=== PATIENT | female | born 1960 | race Caucasian/White ===

== ENCOUNTER 2022-10-25 16:50 | Emergency (ER) | payer OTHER ==
[2022-10-25 17:24] LABS: BASOPHILS # (AUTO) 0.1 10^3/uL (0.0-0.1); BASOPHILS % (AUTO) 1.3 %; EOSINOPHILS # (AUTO) 0.1 10^3/uL (0.0-0.7); EOSINOPHILS % (AUTO) 1.4 %; HCT - HEMATOCRIT 41.8 % (37.0-47.0); HGB - HEMOGLOBIN 13.6 g/dL (12.0-16.0); LYMPHOCYTES # (AUTO) 2.5 10^3/uL (1.5-3.5); LYMPHOCYTES % (AUTO) 29.1 %; MEAN CORPUSCULAR HEMOGLOBIN 30.6 pg (27.0-31.0); MEAN CORPUSCULAR HGB CONC 32.5 g/dL (32.0-36.0); MEAN CORPUSCULAR VOLUME 94.1 fL (81.0-99.0); MEAN PLATELET VOLUME 9.7 fL (7.9-10.8); MONOCYTES # (AUTO) 0.7 10^3/uL (0.0-1.0); MONOCYTES % (AUTO) 8.3 %; NEUTROPHILS # (AUTO) 5.1 10^3/uL (1.5-6.6); NEUTROPHILS % (AUTO) 59.7 %; PLT - PLATELET COUNT 285 10^3/uL (130-450); RED BLOOD COUNT 4.44 10^6/uL (4.20-5.40); RED CELL DISTRIBUTION WIDTH 12.7 % (12.0-15.0); WHITE BLOOD COUNT 8.5 x10^3/uL (4.8-10.8)
[2022-10-25 17:32] LABS: ALBUMIN 4.1 g/dL (3.2-5.5); ALBUMIN/GLOBULIN RATIO 1.4 (1.0-2.2); BILIRUBIN,TOTAL 0.6 mg/dL (0.2-1.0); CALCIUM 9.6 mg/dL (8.5-10.3); CREATININE 0.9 mg/dL (0.4-1.0)
--- NOTE | 2022-10-25 17:49 | ED Physician Documentation ---
PD HPI CHEST PAIN - Stated complaint Stated Complaint: CHEST PAIN - Chief complaint Chief Complaint: Cardiac - History obtained from History obtained from: Patient - History of Present Illness Timing - onset: How many hours ago (5), Today (about 12 today.) Timing - onset during: Exertion (was doing yard work, somewhat vigorous.) Timing - duration: Hours Timing - details: Abrupt onset, Still present Location: Substernal Radiation: Left upper extremity. No: Neck, Back Improved by: No: Rest, ASA (she did take 4 baby aspirin at home [employer].) Worsened by: Exertion. No: Inspiration, Movement Associated symptoms: Shortness of air (mild), Nausea (mild). No: Vomiting, Feeling faint / dizzy, Palpitations Similar symptoms before: Has not had sx before Recently seen: Not recently seen Review of Systems Constitutional: denies: Fever, Chills Nose: denies: Rhinorrhea / runny nose, Congestion Throat: denies: Sore throat Cardiac: reports: Chest pain / pressure. denies: Palpitations, Pedal edema, Calf pain Respiratory: denies: Cough GI: reports: Nausea. denies: Abdominal Pain, Vomiting, Diarrhea Musculoskeletal: denies: Extremity swelling PD PAST MEDICAL HISTORY - Past Medical History Cardiovascular: Atrial fibrillation (currently flecanaide and metoprolol with good effect. ) Respiratory: None Neuro: None Endocrine/Autoimmune: None - Present Medications Home Medications: Ambulatory Orders Medication Instructions Recorded Confirmed Flecainide Acetate 100 mg PO DAILY 10/25/22 10/25/22 Metoprolol Tartrate [Lopressor] 25 mg PO DAILY 10/25/22 10/25/22 Zolpidem Tartrate [Ambien] 10 mg PO HS PRN 10/25/22 10/25/22 - Allergies Allergies/Adverse Reactions: Allergies Allergy/AdvReac Type Severity Reaction Status Date / Time Sulfa (Sulfonamide Allergy Rash Verified 10/25/22 16:58 Antibiotics) - Living Situation Living Situation: reports: Alone ([facility] Living Arrangement: reports: At home - Social History Does the pt smoke?: No - Family History Family history: reports: CAD PD ED PE NORMAL - Vitals Vital signs reviewed: Yes - General General: Alert and oriented X 3, No acute distress, Well developed/nourished - Neck Neck: Supple, no meningeal sign - Cardiac Cardiac: RRR, No murmur - Respiratory Respiratory: No respiratory distress, Clear bilaterally - Abdomen Abdomen: Normal bowel sounds, Soft - Derm Derm: Normal color, Warm and dry - Extremities Extremities: No tenderness to palpate, No edema, No calf tenderness / cord - Neuro Neuro: Alert and oriented X 3, No motor deficit, Normal speech Results - Vitals Vitals: Vital Signs - 24 hr 10/25/22 10/25/22 10/25/22 16:54 17:28 17:47 Temperature 36.0 C L Heart Rate 68 52 L 55 L Respiratory 15 13 Rate Blood Pressure 138/92 H 126/84 H O2 Saturation 98 98 10/25/22 10/25/22 10/25/22 18:30 18:33 19:23 Temperature Heart Rate 63 67 65 Respiratory 22 20 Rate Blood Pressure 137/95 H 137/95 H 140/100 H O2 Saturation 99 98 97 Oxygen O2 Source Room air - EKG (time done) 16:59 EKG releavant findings:: EKG personally interpreted by author of this note. Relevant findings are: Rate: Rate (enter#) (55) Rhythm: Sinus bradycardia [place]rell: Normal Intervals: Normal PA QRS: Normal Ischemia: Normal ST segments, Q waves (V1,V2. concordant T inversions as well. ). No: ST elevation c/w ischemia, ST depression - Labs Labs: Laboratory Tests 10/25/22 10/25/22 10/25/22 17:14 17:14 17:14 WBC 8.5 RBC 4.44 Hgb 13.6 Hct 41.8 MCV 94.1 MCH 30.6 MCHC 32.5 RDW 12.7 Plt Count 285 MPV 9.7 Neut # (Auto) 5.1 Lymph # (Auto) 2.5 Ware # (Auto) 0.7 Eos # (Auto) 0.1 Baso # (Auto) 0.1 Absolute Nucleated RBC 0.00 Nucleated RBC % 0.0 Sodium 139 Potassium 4.0 Chloride 105 Carbon Dioxide 26 Anion Gap 8.0 BUN 15 Creatinine 0.9 Estimated GFR (MDRD) 63 L Glucose 107 H Calcium 9.6 Total Bilirubin 0.6 AST 32 ALT 29 Alkaline Phosphatase 71 Troponin I High Sens 997.1 H* B-Natriuretic Peptide Total Protein 7.0 Albumin 4.1 Globulin 2.9 Albumin/Globulin Ratio 1.4 Lipase 26 10/25/22 10/25/22 18:18 18:18 WBC RBC Hgb Hct MCV MCH MCHC RDW Plt Count MPV Neut # (Auto) Lymph # (Auto) Ware # (Auto) Eos # (Auto) Baso # (Auto) Absolute Nucleated RBC Nucleated RBC % Sodium Potassium Chloride Carbon Dioxide Anion Gap BUN Creatinine Estimated GFR (MDRD) Glucose Calcium Total Bilirubin AST ALT Alkaline Phosphatase Troponin I High Sens 929.7 H* B-Natriuretic Peptide 201 H Total Protein Albumin Globulin Albumin/Globulin Ratio Lipase - Rads (name of study) chest xray Relevant Findings:: Prelim report reviewed (no acute process.), EMP independent interpretation of test (heart size is normal. ), See rad report PD Medical Decision Making - ED course Complexity details: considered differential (chest pain concerning for cardiac. ), d/w patient ED course: The patient had onset of substernal chest pain with some nausea. Mild dyspnea but no pleuritic component, no calf swelling or pain. She was doing some yard work at the time. She did rest some and the symptoms did not improve at all over several hours. She did take aspirin at home. Subsequently she came here for evaluation with still ongoing chest discomfort. She has not had similar in the past. Her EKG did not show any ST elevations. It was delayed R wave progression through the anterior leads and concordant T wave inversion in V1 and V2. Chest x-ray was clear. Her blood test did show a quite elevated troponin in the 900s on initial blood testing. It was repeated and 1-1/2 to 2 hours and was still in the 900s though was slightly lower than the first. However this is still convincing for an acute myocardial injury. And she is still having ongoing chest discomfort. Therefore I started heparin as well as nitroglycerin sublingually which helped a little so placed on a drip. Her resting heart rate is already is relatively slow so no further beta-blockers were given. She was given Plavix and atorvastatin. She had taken aspirin already at home. We will we will call to other facilities to see if we can get her transferred for cardiac evaluation/intervention. Departure - Departure Disposition: 02 Transfer Acute Care Hosp Clinical Impression: Chest pain, Non-STEMI (non-ST elevated myocardial infarction) Condition: Stable
[2022-10-25] MEDS ORDERED: ATORVASTATIN 40 MG TABLET PO STA (18:15)
[2022-10-25] MEDS ORDERED: CLOPIDOGREL 75 MG TABLET PO STA (18:16)
[2022-10-25] MEDS ORDERED: NITROGLYCERIN SL 0.4 MG TABLET SL STA (18:17)
[2022-10-25] MEDS ORDERED: ONDANSETRON 4 MG/2 ML VIAL IVP STA (18:55)
[2022-10-25] MEDS ORDERED: MORPHINE 2 MG/ML CARPUJECT IVP STA (18:57)
[2022-10-25] MEDS ORDERED: NITROGLYCERIN 50 MG/250 ML 50 MG/250 ML BOTTLE IV STA (18:57)
[2022-10-25] MEDS ORDERED: HEPARIN 25000UNITS/500ML (D5W) 25,000 UNIT/500 ML BAG IV SCH (19:00)
--- NOTE | 2022-10-25 19:08 | XRAY Report ---
PROCEDURE: Chest 1 View X-Ray INDICATIONS: Chest pain TECHNIQUE: One view of the chest was acquired. COMPARISON: None. FINDINGS: Surgical changes and devices: None. Lungs and pleura: No pleural effusions or pneumothorax. Lungs are clear. Mediastinum: Mediastinal contours appear normal. Heart size is normal. Bones and chest wall: No suspicious bony lesions. Overlying soft tissues appear unremarkable. IMPRESSION: No acute cardiopulmonary process. No focal consolidation. Reviewed by: Etienne Oliveira MD on 10/25/2022 7:06 PM PDT Approved by: Etienne Oliveira MD on 10/25/2022 7:06 PM PDT Station ID: [id number]
[2022-10-25] MEDS ORDERED: iohexoL-300 100 ML VIAL ONE (20:59)
--- NOTE | 2022-10-25 21:51 | CT Report ---
PROCEDURE: ANGIO CHEST W/WO INDICATIONS: chest pain CONTRAST: 80mL Omni 300 TECHNIQUE: After the administration of intravenous contrast, 2 mm axial images were acquired from the pulmonary apices to the posterior costophrenic angles during the arterial phase. In addition, 1 mm lung kernel and 5 mm soft tissue kernel reconstructions were performed. 3-dimensional coronal oblique maximum int ensity projection (MIP) reformats, 8 mm axial MIP, and 5 mm coronal and sagittal MPR reformats were t hen performed through the thorax. For radiation dose reduction, the following was used: automated exp osure control, adjustment of mA and/or kV according to patient size. COMPARISON: Chest x-ray 10/25/2022. FINDINGS: Image quality: Excellent. Large vessels: No filling defects within the opacified pulmonary arteries, accounting for motion and contrast timing. No evidence of acute aortic syndrome or aortic aneurysm. Lungs and pleura: No consolidation. No pleural effusions. No pneumothorax. No suspicious pulmonary n odules which require follow up. Mediastinum: Heart size is normal. No pericardial effusion. No large vessel abnormality. No mediastin al adenopathy by size criteria. Chest wall and lower neck: Thyroid is unremarkable. No axillary or supraclavicular adenopathy by size . Bones: No aggressive osseous abnormality. Upper Abdomen: Unremarkable. IMPRESSION: Lungs are clear. No pulmonary embolism. Reviewed by: Yu Sellers MD on 10/25/2022 9:50 PM PDT Approved by: Yu Sellers MD on 10/25/2022 9:50 PM PDT Station ID: [id number]
[2022-10-25] MEDS: MORPHINE 2 MG/ML CARPUJECT IVP STA (22:51)
[2022-10-25] MEDS ORDERED: iohexoL-300 100 ML VIAL IVP ONE (23:31)
[2022-10-26 01:12] VITALS: BP 103/84
[2022-10-26] MEDS ORDERED: LORazepam 2 MG/ML VIAL IVP STA (01:34)
== END 2022-10-26 02:00 | disposition short-term general hospital (02) ==
LOC: ED 16:50
DX: I21.4 Non-ST elevation (NSTEMI) myocardial infarction (principal)
CPT/HCPCS: 36415; 71045; 71275; 80053; 83690; 83880; 84484; 85025; 87635; 93005; 96374; 96375; 99284; 99285; A9270; J2060; Q9967

== ENCOUNTER 2022-10-26 01:59 | Outpatient (CLI) | payer OTHER | END 2022-10-26 02:00 | disposition short-term general hospital (02) | LOC: EMS 01:59 | PROVIDERS: ATTEND Emergency Medicine | DX: I21.4 Non-ST elevation (NSTEMI) myocardial infarction (principal) | CPT/HCPCS: A0425; A0426 ==